=== PATIENT | male | born 1955 | race Caucasian/White ===

== ENCOUNTER 2018-10-22 00:51 | Day surgery (SDC) | payer OTHER ==
[~2018-10-22] VITALS: Ht 172.7 cm; Wt 64.4 kg
[~2018-10-22 00:51] MED LIST: DOCO100C2 PO; SAW450CA3 PO; VIT-9 PO; VITA1CAP50 PO
[2018-10-22] MEDS ORDERED: PROPOFOL EMUL(*) 10MG/ML 20 ML 20 ML ONE ×2 (07:10→09:30)
[2018-10-22 07:54] VITALS: BP 132/77
[2018-10-22] MEDS ORDERED: LIDOCAINE/SOD BICARB 8.4% SYR ID ONE (08:05)
[2018-10-22] MEDS ORDERED: NORMOSOL R SOLN(*) 1000 ML BAG 1,000 ML IV PRN (08:05)
[2018-10-22 09:51] VITALS: BP 83/57
--- NOTE | 2018-10-22 09:55 | NUR ---
0902 PT ARRIVED TO [place] VIA CART, SAFETY MAINTAINED, SBAR FORM Nancy MALLORY RN AND DR. MAIER, VSS, PARTNER MARCIA AT BEDSIDE. [id number] DR. HELTON AT BEDSIDE TO DISCUSS FINDINGS WITH SPOUSE. ALL QUESTIONS ANSWERED, REPEAT BP STILL LOW, WILL CONTINUE TO MONITOR ASSESSED, UNREMARKABLE
[2018-10-22 10:00] VITALS: BP 89/67
--- NOTE | 2018-10-22 10:01 | Short(Outpt) Discharge Summary ---
Discharge Summary Reason for Hosp/Final Diag: (1) Positive colorectal cancer screening using Cologuard test Status: Acute Hospital Course & Plan: Colonoscopy with polypectomy x3 completed without problems. Departure Discharge to: Home, Self Care Discharge Instructions Home Meds Reported Medications Docosahexanoic Acid (DHA) 100 Mg Capsule, 100 MG PO QDAY, CAPSULE 10/20/18 Vit A/Vit C/Vit E/Zinc/Copper (PRESERVISION AREDS TABLET) 1 Each Tablet, 1 EACH PO QDAY 10/20/18 Saw [place] Fruit (SAW [place]) 450 Mg Capsule, 450 MG PO QDAY, CAPSULE 10/20/18 Vitamin B Complex & Vit C No.3 (B COMPLEX WITH VITAMIN C) 1 Each Capsule, 1 EACH PO QDAY, CAPSULE 10/20/18 Diet: Regular Activity: As Tolerated Special Instructions: Your colonoscopy was completed without problems and your prep was excellent (Good Job!!). I removed 3 polyps from you colon and rectum and they were sent to pathology. My office will call you in the next week or two to let you know what the polyps are and when your next colonoscopy should be (possibly in 3, 5, or 10 years) depending on pathology results. JARAD HELTON MD Oct 22, 2018 10:01
--- NOTE | 2018-10-22 10:13 | NUR ---
1000 VSS, BP STILL LOW, PT STILL RESTING, DOWN TO 1L NC, SATTING WELL 1015 WHOLE BAG INFUSED, D/C'D FROM IV TUBING, SALINE LOCKED IV, PT MOVED TO ROOM AIR
--- NOTE | 2018-10-22 10:15 | NUR ---
1015 PT AWAKE WHILE D/CING IV, ROLLED TO SUPINE POSITION, DECLINES FOOD/DRINK AT THIS TIME.
[2018-10-22 10:30] VITALS: BP 123/44
[2018-10-22 10:46] VITALS: BP 111/78
[2018-10-22 10:49] VITALS: BP 109/74
--- NOTE | 2018-10-22 11:05 | NUR ---
1030 VSS, BP WNL 1045 ORTHOSTATICS DONE, STABLE, DENIES DIZZINESS, REASSESSED, UNREMARKABLE, ALLOWED TO DRESS 1050 IV OUT, C/D INSTRUCTIONS COVERED, ALL QUESTIONS ANSWERED 1059 PT OUT BY FOOT ALONG WITH TO ADMITTING DOORS, STEADY ON FEET, ALL BELONGINGS WITH PT
== END 2018-10-22 10:59 | disposition home or self-care (01) ==
LOC: OR 00:51
PROVIDERS: ATTEND Surgery
DX: R19.5 Other fecal abnormalities (principal); D12.2 Benign neoplasm of ascending colon; D12.8 Benign neoplasm of rectum
CPT/HCPCS: 00811; 45380; 45385; 88305; J2704